=== PATIENT | female | born 1945 | race Caucasian/White ===

== ENCOUNTER → 2022-01-13 01:45 | Outpatient (CLI) | payer OTHER, BC, SELFPAY ==
--- NOTE | 2022-01-13 | DI.RAD_ITS ---
Exam(s) XR HIP RT COMPLETE AP PELVIS EXAM: XR HIP RT COMPLETE AP PELVIS CLINICAL HISTORY: RT HIP PAIN, M25.551. TECHNIQUE: 2D digital imaging was performed of the right hip. Two images were obtained. AP pelvis a nd lateral right hip views were obtained. COMPARISON: CR LEFT HIP COMPLETE from 04/22/2013 FINDINGS: BONES: No acute fracture is present. No bony destructive lesion is seen. JOINTS: No dislocation present. There are mild degenerative changes of the hips bilaterally with join t space narrowing and mild acetabular spurring. Degenerative changes are seen in the lower lumbar sp ine. SOFT TISSUE: Normal. IMPRESSION: Mild degenerative changes of the right hip. DATA REPOSITORY: RADIATION DOSE DELIVERED:
== END ==
PROVIDERS: PCP Internal Medicine; Visit Provider Nurse Practitioner Family
DX: M25.551 Pain in right hip (principal); M16.11 Unilateral primary osteoarthritis, right hip
CPT/HCPCS: 73502

== ENCOUNTER 2024-11-28 13:47 | Outpatient (REF) | payer MEDICARE, SELFPAY ==
[2024-11-28 21:20] LABS: Abs Immature Grans 0.02 10^3/uL (0.0-0.06); Absolute Basophil Count 0.04 10^3/uL (0.0-0.2); Absolute Lymphocyte Count 1.83 10^3/uL (1.2-3.4); Absolute Monocyte Count 0.41 10^3/uL (0.1-0.8); Absolute Neutrophil Count 2.99 10^3/uL (1.2-6.7); Basophils % 0.7 %; Eosinophils % 1.9 %; HCT 43.1 % (36.0-46.0); Immature Grans % 0.4 %; MCHC 32.5 % (32.0-36.0); MCV 92 fL (80-95); MPV 10.4 fL (8.0-11.0); Monocytes % 7.6 %; Neutrophils % 55.4 %; Platelet Count 213 10^3/uL (130-400); RBC 4.67 10^6/uL (3.93-5.22); RDW-SD 43.5 fL; WBC 5.39 10^3/uL (4.4-10.8)
[2024-11-28 21:21] LABS: Bilirubin Negative (Negative); Blood Trace-lysed (Negative); Clarity Sl Cloudy (Clear); Glucose Negative (Negative); Ketones Negative (Negative); Leukocyte Esterase Negative (Negative); Nitrite Positive (Negative); Urobilinogen 0.2 mg/dL (Up to 0.2); pH 6.5 (5-8)
[2024-11-28 21:28] LABS: Iron 84 ug/dL (50-170); Total Iron Binding Capacity 282 ug/dL (250-450); Transferrin Sat 30 % (15-50)
[2024-11-28 21:29] LABS: Bacteria Many HPF (Negative); C & S Indicated? Yes; Crystals Negative HPF (Negative); Epithelial Cells Rare HPF (Negative); Mucus Negative (Negative); Other Cells Rare Transitional (Negative)
[2024-11-28 21:45] LABS: Hemoglobin A1C 5.8 % (<5.7)
[2024-11-28 21:59] LABS: ALT 35 U/L (14-59); AST 24 U/L (15-37); Albumin 3.9 g/dL (3.4-5.0); Alkaline Phosphatase 87 U/L (46-116); Anion Gap 8.7 mmol/L (3-11); BUN 16 mg/dL (7-18); Bilirubin, Total 0.4 mg/dL (0.2-1.0); CO2 32.3 mmol/L (21.0-32.0); CREATININE 0.8 mg/dL (0.55-1.02); Calculated LDL 126 mg/dL (<100); Chloride 105 mmol/L (98-107); Cholesterol 232 mg/dL (<200); Estimated GFR 75.37 (mL/min/1.73m2); Ferritin 221 ng/mL (8-252); Glucose 102 mg/dL (74-106); HDL Cholesterol 67 mg/dL (>or=50); Potassium 4.9 mmol/L (3.5-5.1); Sodium 146 mmol/L (136-145); TSH (W/Ref FT4) 2.42 uIU/mL (0.36-3.74); Total Protein 7.4 g/dL (6.4-8.2); Triglyceride 199 mg/dL (<150); Vitamin B12 338 pg/mL (193-986)
[2024-11-28 22:13] LABS: COMMENT (LAB VIEW ONLY) 99.85 mg/dL; Microalb ug/mg Crea 21.5 ug/mg Cr
[2024-12-02 15:33] LABS: Albumin 59.2 % (55.8-66.1); Albumin g/dL 4.4 g/dL (3.6-5.2); Comment (See Note); Monoclonal Spike 2.6 % (None Seen); Monoclonal Spike g/dL 0.2 g/dL (None Seen); Total Protein 7.5 g/dL (6.3-8.2)
[2025-01-13 08:11] LABS: Immunotyping, Serum (See Note)
== END 2024-11-28 13:48 | disposition home or self-care (01) ==
LOC: NCHCN 13:47
PROVIDERS: PCP Nurse Practitioner Family; Visit Provider Nurse Practitioner Family
DX: I10 Essential (primary) hypertension (principal); L65.9 Nonscarring hair loss, unspecified
CPT/HCPCS: 80053; 80061; 87077; 81003; 81015; 82043; 82570; 82607; 82728; 83036; 83540; 83550; 84165; 84443; 85025; 86320; 87086; 87186

== ENCOUNTER 2024-12-03 00:44 | Outpatient (CLI) | payer MEDICARE, SELFPAY ==
--- NOTE | 2024-12-03 | DI.RAD_ITS ---
Exam(s) XR HIP LT COMPLETE AP PELVIS EXAM: XR HIP LT COMPLETE AP PELVIS CLINICAL HISTORY: Pain in lt hip, M25.552. TECHNIQUE: 2D digital imaging was performed of the left hip. Two views were obtained. AP pelvis an d lateral left hip views were obtained. COMPARISON: CR XR HIP RT COMPLETE AP PELVIS from 01/13/2022 FINDINGS: BONES: No acute fracture is present. No bony destructive lesion is seen. Deformity of the greater tro chanter is unchanged. JOINTS: No dislocation present. There are mild degenerative changes seen in the hips bilaterally pred ominantly involving joint space narrowing. The sacroiliac joints are intact as is the symphysis pubi s. SOFT TISSUE: Vascular calcifications are seen in the soft tissues. IMPRESSION: Mild degenerative changes seen in the hips bilaterally. DATA REPOSITORY: RADIATION DOSE DELIVERED:
== END 2024-12-03 01:04 ==
PROVIDERS: PCP Nurse Practitioner Family; Visit Provider Nurse Practitioner Family
DX: M16.0 Bilateral primary osteoarthritis of hip (principal)
CPT/HCPCS: 73502